=== PATIENT | male | born 1975 | race African-American/Black ===

== ENCOUNTER 2025-04-08 17:11 | Inpatient (IN) | payer BC ==
[~2025-04-08] VITALS: Ht 188 cm; Wt 84.4 kg
[2025-04-08] MEDS: ACETAMINOPHEN ES 500 MG TABLET PO ONE (17:30)
[2025-04-08] MEDS: IV NS 0.9% 1,000 ML BAG IV ONE (17:30)
[2025-04-08] MEDS ORDERED: ACETAMINOPHEN ES 500 MG TABLET ONE (17:30)
[2025-04-08 17:42] LABS: BASOPHILS % (AUTO) 0.3 % (0.0-2.0); EOSINOPHILS # (AUTO) 0.1 K/uL (0.0-0.7); EOSINOPHILS % (AUTO) 0.6 % (0.0-6.0); HEMATOCRIT 40 % (39-51); HEMOGLOBIN 12.9 g/dL (13.5-17.5); LYMPHOCYTES # (AUTO) 2.1 K/uL (0.8-4.8); LYMPHOCYTES % (AUTO) 19.2 % (20.0-44.0); MEAN CORPUSCULAR HEMOGLOBIN 25 PG (26.0-33.0); MEAN CORPUSCULAR HGB CONC 32 g/dl (31.0-36.0); MEAN CORPUSCULAR VOLUME 79 fL (80-96); MONOCYTES # (AUTO) 0.7 K/uL (0.1-1.30); MONOCYTES % (AUTO) 6.7 % (2.0-12.0); NEUTROPHILS % (AUTO) 73.2 % (43.0-81.0); PLATELET COUNT (AUTO) 208 K/uL (150-450); RED BLOOD CELL COUNT(AUTO) 5.09 MIL/uL (4.5-6.0); WHITE BLOOD COUNT (AUTO) 10.9 K/uL (4.3-11.0)
[2025-04-08 17:50] LABS: CALCIUM, SERUM 8.8 mg/dL (8.5-10.1); CARBON DIOXIDE 22 mmol/L (21-32); CHLORIDE 107 mmol/L (98-107); CREATININE 1.4 mg/dL (0.6-1.3); GLUCOSE 147 mg/dL (74-106); POTASSIUM 3.4 mmol/L (3.5-5.1); SODIUM SERUM 143 mmol/L (136-145); UREA NITROGEN, BLOOD 14 mg/dL (7-18)
[2025-04-08 17:56] LABS: ALANINE AMINOTRANSFERASE 48 U/L (12-78); ALBUMIN 3.5 g/dL (3.4-5.0); ALCOHOL, BLOOD < 3 mg/dL (0-10); ALKALINE PHOSPHATASE 75 U/L (46-116); ASPARTATE AMINOTRANSFERASE 71 U/L (15-37); BILIRUBIN,DIRECT 0.2 mg/dL (0.0-0.2); BILIRUBIN,TOTAL 0.8 mg/dL (0.2-1.0); INR 1.07 (0.91-1.10); PROTHROMBIN TIME 11.3 SECS (9.2-11.1); TOTAL PROTEIN, SERUM 6.9 g/dL (6.4-8.2)
[2025-04-08] MEDS ORDERED: IOHEXOL-300 100 ML VIAL IV ONE (18:07)
[2025-04-08] MEDS ORDERED: IV NS 0.9% 250 ML IV ONE (18:08)
[2025-04-08] MEDS ORDERED: ENOXAPARIN SODIUM 100 MG/ML DISP.SYRIN SQ ONE (20:08)
[2025-04-08] MEDS: ENOXAPARIN SODIUM 80 MG/0.8 ML DISP.SYRIN SQ ONE (20:09)
[2025-04-08] MEDS ORDERED: MAGNESIUM HYDROXIDE 30 ML UDC PO PRN (21:00)
[2025-04-08] MEDS ORDERED: ACETAMINOPHEN 325 MG TABLET PO PRN (21:00)
[2025-04-08] MEDS ORDERED: MAG HYDROX/AL HYDROX/SIMETH 30 ML UDC PO PRN (21:00)
[2025-04-08] MEDS ORDERED: Z GUARD REMEDY 4 OZ OINT TP PRN (21:00)
[2025-04-08] MEDS ORDERED: ONDANSETRON HCL/PF 4 MG/2 ML VIAL IVP PRN (21:00)
[2025-04-08 21:46] VITALS: BP 151/97; TEMP 99.1; O2SAT 99
[2025-04-08] MEDS: IV NS 0.9% 1,000 ML IV SCH (22:01)
[2025-04-08] MEDS: POTASSIUM CHLORIDE 20 MEQ TAB.PRT.SR PO ONE (22:13)
[2025-04-08] MEDS: ASPIRIN 81 MG TAB.CHEW PO SCH (23:33)
[2025-04-08] MEDS: HYDROCODONE/APAP 5/325MG TABLET PO PRN (23:36)
[2025-04-09] VITALS: BP 138/89; TEMP 98.2; O2SAT 96
[2025-04-09 04:00] VITALS: BP 134/90; TEMP 98.2; O2SAT 96
[2025-04-09 06:34] LABS: BASOPHILS % (AUTO) 0.4 % (0.0-2.0); EOSINOPHILS # (AUTO) 0.1 K/uL (0.0-0.7); EOSINOPHILS % (AUTO) 1.3 % (0.0-6.0); HEMATOCRIT 37 % (39-51); HEMOGLOBIN 11.7 g/dL (13.5-17.5); LYMPHOCYTES # (AUTO) 2.4 K/uL (0.8-4.8); LYMPHOCYTES % (AUTO) 28.7 % (20.0-44.0); MEAN CORPUSCULAR HEMOGLOBIN 25 PG (26.0-33.0); MEAN CORPUSCULAR HGB CONC 32 g/dl (31.0-36.0); MEAN CORPUSCULAR VOLUME 78 fL (80-96); MONOCYTES # (AUTO) 0.9 K/uL (0.1-1.30); MONOCYTES % (AUTO) 10.7 % (2.0-12.0); NEUTROPHILS % (AUTO) 58.9 % (43.0-81.0); PLATELET COUNT (AUTO) 191 K/uL (150-450); RED BLOOD CELL COUNT(AUTO) 4.69 MIL/uL (4.5-6.0); RED CELL DISTRIBUTION WIDTH 15.4 % (11.5-15.0); WHITE BLOOD COUNT (AUTO) 8.4 K/uL (4.3-11.0)
[2025-04-09 07:20] LABS: CALCIUM, SERUM 8.3 mg/dL (8.5-10.1); CREATININE 1.1 mg/dL (0.6-1.3); MAGNESIUM 1.8 mg/dL (1.8-2.4); PHOSPHORUS 3.5 mg/dL (2.5-4.9); POTASSIUM 3.8 mmol/L (3.5-5.1)
[2025-04-09 08:00] VITALS: BP 145/99; TEMP 98.1; O2SAT 100
[2025-04-09 08:14] LABS: THYROID STIMULATING HORMONE 0.92 uIU/mL (0.358-3.74)
[2025-04-09] MEDS ORDERED: FOLI0.4T6 PO (08:17)
[2025-04-09] MEDS: ASPIRIN EC 81 MG TABLET.DR PO SCH (08:22)
[2025-04-09] MEDS: PANTOPRAZOLE 40 MG TABLET.DR PO SCH (08:22)
[2025-04-09] MEDS: ENOXAPARIN SODIUM 80 MG/0.8 ML DISP.SYRIN SQ SCH (08:23)
[2025-04-09] MEDS: LEVETIRACETAM (500MG) 1,000 MG in IV NS 0.9% 90 ML IV ONE (09:44)
[2025-04-09] MEDS ORDERED: CT SWABBABLE VALVE TRANS SET 1 EA INFUS.SET MC ONE (10:41)
[2025-04-09] MEDS ORDERED: IOHEXOL-350 100 ML VIAL IV ONE (10:41)
[2025-04-09] MEDS ORDERED: IV NS 0.9% 250 ML IV ONE (10:41)
[2025-04-09] MEDS: METHOCARBAMOL (750MG) 750 MG TABLET PO SCH (11:10)
[2025-04-09 12:00] VITALS: BP 161/101; TEMP 97.9; O2SAT 100
[2025-04-09] MEDS: AMLODIPINE BESYLATE 5 MG TABLET PO SCH (13:08)
[2025-04-09] MEDS ORDERED: CLONIDINE HCL 0.1MG/24H PTWK 1 EA PATCH TD PRN (14:30)
[2025-04-09] MEDS: CLONIDINE HCL 0.1 MG TABLET PO PRN (15:52)
[2025-04-09 16:00] VITALS: BP 145/94; TEMP 97.9; O2SAT 100
[2025-04-09 20:00] VITALS: BP 137/93; TEMP 98.6; O2SAT 100
[2025-04-09] MEDS: LEVETIRACETAM (250 MG) 250 MG TABLET PO SCH (20:09)
[2025-04-09 21:54] LABS: APPEARANCE,URINE CLEAR (CLEAR); BILIRUBIN,URINE NEGATIVE (NEGATIVE); BLOOD, URINE NEGATIVE Ery/uL (NEGATIVE); COLOR,URINE YELLOW (YELLOW); KETONES,URINE NEGATIVE (NEGATIVE); LEUKOCYTE ESTERASE ,URINE NEGATIVE (NEGATIVE); NITRITE, URINE NEGATIVE (NEGATIVE); PROTEIN,URINE NEGATIVE (NEGATIVE); UGLUCOSE NEGATIVE (NEGATIVE)
[2025-04-09 21:58] LABS: ADD URINE CULTURE NO; BACTERIA,URINE None seen /HPF (None Seen); RBC,URINE 0-2 /HPF (0-2); SQUAMOUS EPITHELIAL CELL,UR None Seen /HPF (None Seen); WBC,URINE 0-2 /HPF (0-3)
[2025-04-09 22:13] LABS: EOSINOPHIL,URINE None Seen
[2025-04-09 22:34] LABS: CREATININE, URINE 144.9 MG/DL (30.0-125.0)
[2025-04-09 22:38] LABS: URINE TOTAL PROTEIN 10.6 mg/dL (0-11.9)
[2025-04-10] VITALS: BP 123/79; TEMP 98.8; O2SAT 99
[2025-04-10 04:00] VITALS: BP 138/80; TEMP 98.1; O2SAT 99
[2025-04-10 04:31] VITALS: BP 154/81; TEMP 98.1; O2SAT 98
[2025-04-10 07:46] LABS: BASOPHILS % (AUTO) 0.4 % (0.0-2.0); EOSINOPHILS # (AUTO) 0.1 K/uL (0.0-0.7); EOSINOPHILS % (AUTO) 1.4 % (0.0-6.0); HEMATOCRIT 37 % (39-51); HEMOGLOBIN 11.9 g/dL (13.5-17.5); LYMPHOCYTES # (AUTO) 2.3 K/uL (0.8-4.8); LYMPHOCYTES % (AUTO) 28.8 % (20.0-44.0); MEAN CORPUSCULAR HEMOGLOBIN 25 PG (26.0-33.0); MEAN CORPUSCULAR HGB CONC 32 g/dl (31.0-36.0); MEAN CORPUSCULAR VOLUME 79 fL (80-96); MONOCYTES # (AUTO) 0.8 K/uL (0.1-1.30); MONOCYTES % (AUTO) 9.8 % (2.0-12.0); NEUTROPHILS # (AUTO) 4.7 K/uL (1.8-8.9); NEUTROPHILS % (AUTO) 59.6 % (43.0-81.0); PLATELET COUNT (AUTO) 185 K/uL (150-450); RED BLOOD CELL COUNT(AUTO) 4.69 MIL/uL (4.5-6.0); RED CELL DISTRIBUTION WIDTH 15.6 % (11.5-15.0); WHITE BLOOD COUNT (AUTO) 7.9 K/uL (4.3-11.0)
[2025-04-10 08:00] VITALS: BP 142/86; TEMP 98.8; O2SAT 99
[2025-04-10 08:12] LABS: CALCIUM, SERUM 8.4 mg/dL (8.5-10.1); POTASSIUM 3.7 mmol/L (3.5-5.1)
[2025-04-10] MEDS ORDERED: IV NS 0.9% 1,000 ML IV PRN (08:14)
[2025-04-10 12:00] VITALS: BP 149/96; TEMP 98.4; O2SAT 99
[2025-04-10] MEDS ORDERED: AMLO5TAB4 PO (13:05)
[2025-04-10] MEDS ORDERED: METH-649 PO (13:05)
[2025-04-10] MEDS ORDERED: LEVE500T9 PO (13:08)
== END 2025-04-10 15:49 | disposition home or self-care (01) | DRG 100 ==
LOC: ER 17:19 → TELE1 20:57
PROVIDERS: ATTEND Nurse Practitioner Family
DX: R56.9 Unspecified convulsions (principal); I21.A1 Myocardial infarction type 2; N17.9 Acute kidney failure, unspecified; V89.2XXA Person injured in unspecified motor-vehicle accident, traffic, initial encounter; Y92.410 Unspecified street and highway as the place of occurrence of the external cause; E87.6 Hypokalemia; Z86.711 Personal history of pulmonary embolism; Z79.899 Other long term (current) drug therapy; I10 Essential (primary) hypertension
CPT/HCPCS: 36415; 70450-TC; 71260-TC; 72125-TC; 80048-TC; 80061-TC; 80076-TC; 81001; 82570-TC; 83735-TC; 83880; 84100-TC; 84300-TC; 84443-TC; 84484-TC; 85025-TC; 85378-TC; 85730-TC; 93307-TC; 93970-TC; 95819-TC; 97116-TC; 97530-TC; A4223; G0378; G0480; J1650; J1953; J7030; J7050; Q9967